=== PATIENT | female | born 1970 | race Caucasian/White ===

== ENCOUNTER 2017-04-05 15:23 | Emergency (ER) | payer MEDICAID ==
[~2017-04-05] VITALS: Ht 162.6 cm; Wt 68.5 kg
[~2017-04-05 15:23] MED LIST: ACYC200C; ALPR2TAB2 PO; ATEN25TA; CYCL10TA9 PO; DIAZ5TAB3 PO; FNT100TD TD; GABA600T2; HYDR-2890 PO; HYDR-707 PO; IBUP-1773 PO; LORA-794; METO50TA7 PO; OMEP20CA12 PO; OXYC-12 PO; SOLI5TAB4 PO; SULF1TAB35; TOLTA4; TRAM50TA2 PO; VENL100T; VENL150C; [UNRECOGNIZED DRUG - OTHER]
[2017-04-05 16:13] LABS: KETONES,URINE 1+ (NEGATIVE); LEUKOCYTE ESTERASE ,URINE 3+ (NEGATIVE); NITRITE,URINE NEGATIVE (NEGATIVE); PH,URINE 5 (5-9); PROTEIN,URINE 2+ (NEGATIVE); UROBILINOGEN,URINE 4 MG/DL (NORMAL)
[2017-04-05 17:02] LABS: BASOPHILS % (AUTO) 0 % (0-10); EOSINOPHILS # (AUTO) 0.1 10^3/uL (0.0-0.3); EOSINOPHILS % (AUTO) 1 % (0-10); LYMPHOCYTES # (AUTO) 3.5 X 10^3 (1.0-4.0); LYMPHOCYTES % (AUTO) 34 % (12-44); MEAN CORPUSCULAR HEMOGLOBIN 33 PG (25-34); MEAN CORPUSCULAR HGB CONC 36 G/DL (32-36); MEAN CORPUSCULAR VOLUME 93 FL (80-99); MEAN PLATELET VOLUME 9.1 FL (7.4-10.4); MONOCYTES # (AUTO) 0.5 X 10^3 (0.0-1.0); MONOCYTES % (AUTO) 5 % (0-12); NEUTROPHILS % (AUTO) 60 % (42-75); PLATELET COUNT 327 10^3/uL (130-400); RED BLOOD COUNT 4.87 10^6/uL (4.35-5.85); RED CELL DISTRIBUTION WIDTH 14.3 % (10.0-14.5); WHITE BLOOD COUNT 10.1 10^3/uL (4.3-11.0)
[2017-04-05 17:21] LABS: ALANINE AMINOTRANSFERASE 16 U/L (0-55); ALCOHOL < 10 MG/DL (<10); ANION GAP 9 MMOL/L (5-14); ASPARTATE AMINO TRANSFERASE 13 U/L (5-34); BILIRUBIN,TOTAL 0.3 MG/DL (0.1-1.0); BLOOD UREA NITROGEN 9 MG/DL (7-18); BUN/CREATININE RATIO 13; CALCIUM 8.8 MG/DL (8.5-10.1); CARBON DIOXIDE 22 MMOL/L (21-32); CHLORIDE 111 MMOL/L (98-107); CREATININE SERUM 0.67 MG/DL (0.60-1.30); GFR ESTIMATED > 60; GLUCOSE 136 MG/DL (70-105); POTASSIUM 3.3 MMOL/L (3.6-5.0); SODIUM 142 MMOL/L (135-145); TOTAL PROTEIN 6.7 GM/DL (6.4-8.2)
[2017-04-05] MEDS ORDERED: TRIM/SULFAMETH 160/800 (SEPTRA DS) TAB PO STA (18:06)
--- NOTE | 2017-04-05 18:09 | ED General ---
General Chief Complaint: Psych/Social Disorder Stated Complaint: MUSCLE PAIN,CONFUSION,FLUSED FACE,DIARRHEA,FEVER Nursing Triage Note: pt sent from [facility] with complaints of muscle pain, confusion, flushed face, and diahrrea. Pt reports confusion has been going on since last week. Nursing Sepsis Screen: Possible Severe Sepsis Risk History of Present Illness Time Seen by Provider: 16:30 Initial Comments Evaluation for multiple complaints. The patient is treated at [facility] psych[facility]. She reports over the last week she is noted more confusion and myalgias. She denies any anxiety or depression at the present time. Timing/Duration: 1 Week Severity: Mild Modifying Factors: improves with Rest Associated Systoms: Loss of Appetite, Malaise, Weakness Allergies and Home Medications Allergies Coded Allergies: Iodinated Contrast Media - IV Dye (Unverified Allergy, Severe, 10/10/13) ibuprofen (Verified Allergy, Mild, 08/15/13) Home Medications Ibuprofen 600 Mg Tablet, 600 MG PO Q8H, (Reported) Metoprolol Succinate 50 Mg Tab, 50 MG PO DAILY, Ref 3 (Reported) Solifenacin Succinate 5 Mg Tablet, 5 MG PO DAILY, (Reported) Sulfamethoxazole/Trimethoprim 1 Each Tablet, 1 EACH PO BID, #14 Ref 0 Prescribed by: REYMUNDO SINGH on 04/05/17 445 Constitutional: see HPI, malaise, weakness EENTM: no symptoms reported, see HPI Respiratory: no symptoms reported, see HPI Cardiovascular: no symptoms reported, see HPI Gastrointestinal: see HPI, diarrhea Genitourinary: no symptoms reported, see HPI Musculoskeletal: see HPI, muscle pain Skin: no symptoms reported, see HPI Psychiatric/Neurological: See HPI, Emotional Problems Hematologic/Lymphatic: No Symptoms Reported, See HPI Immunological/Allergic: no symptoms reported, see HPI All Other Systems Reviewed Negative Unless Noted: Yes Past Hkpieuj-Szzpmf-Zjugoc Hx Patient Social History Alcohol Use: Denies Use Recreational Drug Use: No Smoking Status: Current Everyday Smoker Type Used: Cigars Recent Foreign Travel: No Contact w/Someone Who Travel: No Recent Infectious Disease Expo: No Recent Hopitalizations: Yes Surgeries HX Surgeries: Yes (CLEFT PALATE) Surgeries: Orthopedic Respiratory Hx Respiratory Disorders: No Cardiovascular Hx Cardiac Disorders: Yes Cardiac Disorders: Hypertension Neurological Hx Neurological Disorders: Yes Reproductive System Hx Reproductive Disorders: No Sexually Transmitted Disease: Yes (HERPES) Genitourinary Hx Genitourinary Disorders: No Gastrointestinal Hx Gastrointestinal Disorders: No Musculoskeletal Hx Musculoskeletal Disorders: Yes (LEFT ELBOW) Musculoskeletal Disorders: Fibromyalgia, Chronic Back Pain Endocrine Hx Endocrine Disorders: No HEENT HX ENT Disorders: No Psychosocial Hx Psychiatric Problems: Yes Behavioral Health Disorders: Anxiety, Depression Blood Transfusions Hx Blood Disorders: No Reviewed Nursing Assessment Reviewed/Agree w Nursing PMH: Yes Family Medical History Family Medial History: Chest pain 03 FATHER 03 MOTHER Family history: Diabetes mellitus 03 FATHER 03 MOTHER Heart disease 03 FATHER 03 MOTHER Physical Exam Vital Signs Vital Sign - Last 12Hours 04/05/17 15:54 Temp 98.3 Pulse 110 Resp 18 B/P (MAP) 112/83 Pulse Ox 92 O2 Delivery Room Air Capillary Refill : Less Than 3 Seconds General Appearance: No Apparent Distress Eyes: Bilateral Eye EOMI, Bilateral Eye Normal Inspection, Bilateral Eye PERRL HEENT: PERRL/EOMI, TMs Normal, Normal ENT Inspection, Pharynx Normal Neck: Full Range of Motion, Normal Inspection, Supple Respiratory: Chest Non Tender, Lungs Clear, Normal Breath Sounds Cardiovascular: Regular Rate, Rhythm, No Edema, No Murmur Gastrointestinal: Normal Bowel Sounds, No Organomegaly, No Pulsatile Mass, Non Tender, Soft, No Distended, No Guarding, No Rebound Back: Normal Inspection, No CVA Tenderness, No Vertebral Tenderness Extremity: Normal Capillary Refill, Normal Inspection, No Pedal Edema Neurologic/Psychiatric: Alert, Oriented x3, No Motor/Sensory Deficits, Other ( patient answers all questions appropriately, slightly flat affect.) Skin: Normal Color, Warm/Dry Lymphatic: No Adenopathy Patient Education: Explained Benefits, Explained Risks, Pt. Ack. Understanding Breath Sounds per Auscultation: Clear Heart Sounds per Auscultation: Regular Airway Exam: Mouth opens >2 fingers Sedation Adminstration Time: 2253 Re-examination Time: 2313 Progress/Results/Core Measures Results/Orders Lab Results Laboratory Tests Test 04/05/17 16:06 04/05/17 16:56 Range/Units Urine Color YELLOW Urine Clarity SLIGHTLY CLOUDY Urine pH 5 5-9 Urine Specific [place] 1.025 H 1.016-1.022 Urine Protein 2+ H NEGATIVE Urine Glucose (UA) NEGATIVE NEGATIVE Urine Ketones 1+ H NEGATIVE Urine Nitrite NEGATIVE NEGATIVE Urine Bilirubin 1+ H NEGATIVE Urine Urobilinogen 4 H NORMAL MG/DL Urine Leukocyte Esterase 3+ H NEGATIVE Urine RBC (Auto) NEGATIVE NEGATIVE Urine RBC NONE /HPF Urine WBC 5-10 H /HPF Urine Crystals NONE /LPF Urine Bacteria MODERATE H /HPF Urine Casts NONE /LPF Urine Mucus LARGE H /LPF Urine Culture Indicated YES Urine Opiates Screen NEGATIVE NEGATIVE Urine Oxycodone Screen NEGATIVE NEGATIVE Urine Methadone Screen NEGATIVE NEGATIVE Urine Propoxyphene Screen NEGATIVE NEGATIVE Urine Barbiturates Screen NEGATIVE NEGATIVE Ur Tricyclic Antidepressants Screen NEGATIVE NEGATIVE Urine Phencyclidine Screen NEGATIVE NEGATIVE Urine Amphetamines Screen NEGATIVE NEGATIVE Urine Methamphetamines Screen NEGATIVE NEGATIVE Urine Benzodiazepines Screen NEGATIVE NEGATIVE Urine Cocaine Screen NEGATIVE NEGATIVE Urine Cannabinoids Screen NEGATIVE NEGATIVE White Blood Count 10.1 4.3-11.0 10^3/uL Red Blood Count 4.87 4.35-5.85 10^6/uL Hemoglobin 16.2 H 11.5-16.0 G/DL Hematocrit 45 35-52 % Mean Corpuscular Volume 93 80-99 FL Mean Corpuscular Hemoglobin 33 25-34 PG Mean Corpuscular Hemoglobin Concent 36 32-36 G/DL Red Cell Distribution Width 14.3 10.0-14.5 % Platelet Count 327 130-400 10^3/uL Mean Platelet Volume 9.1 7.4-10.4 FL Neutrophils (%) (Auto) 60 42-75 % Lymphocytes (%) (Auto) 34 12-44 % Monocytes (%) (Auto) 5 0-12 % Eosinophils (%) (Auto) 1 0-10 % Basophils (%) (Auto) 0 0-10 % Neutrophils # (Auto) 6.0 1.8-7.8 X 10^3 Lymphocytes # (Auto) 3.5 1.0-4.0 X 10^3 Monocytes # (Auto) 0.5 0.0-1.0 X 10^3 Eosinophils # (Auto) 0.1 0.0-0.3 10^3/uL Basophils # (Auto) 0.0 0.0-0.1 10^3/uL Sodium Level 142 135-145 MMOL/L Potassium Level 3.3 L 3.6-5.0 MMOL/L Chloride Level 111 H 98-107 MMOL/L Carbon Dioxide Level 22 21-32 MMOL/L Anion Gap 9 5-14 MMOL/L Blood Urea Nitrogen 9 7-18 MG/DL Creatinine 0.67 0.60-1.30 MG/DL Estimat Glomerular Filtration Rate > 60 BUN/Creatinine Ratio 13 Glucose Level 136 H 70-105 MG/DL Calcium Level 8.8 8.5-10.1 MG/DL Total Bilirubin 0.3 0.1-1.0 MG/DL Aspartate Amino Transf (AST/SGOT) 13 5-34 U/L Alanine Aminotransferase (ALT/SGPT) 16 0-55 U/L Alkaline Phosphatase 123 40-136 U/L Total Protein 6.7 6.4-8.2 GM/DL Albumin 4.0 3.2-4.5 GM/DL Serum Alcohol < 10 <10 MG/DL My Orders Orders - REYMUNDO SINGH Sulfamethoxazole/Trimet Ds Tab (Bactrim (04/05/17 18:06) Vital Signs/I&O Vital Sign - Last 12Hours 04/05/17 04/05/17 15:54 18:38 Temp 98.3 97.6 Pulse 110 98 Resp 18 18 B/P (MAP) 112/83 Pulse Ox 92 90 O2 Delivery Room Air Blood Pressure Mean: 93 Progress Note : Time: 16:30 Progress Note Initial evaluation completed. Will obtain labs and reevaluate. 1710 CBC and CMP essentially normal with WBC 10.1. Urine positive for urinary tract infection. Discussed results of these with patient and her partner. She will be seeing him formerly [facility] [place], to discuss possible changes to her psychiatric medications. Departure Impression Impression: Primary Impression: Urinary tract infection Qualified Codes: N30.00 - Acute cystitis without hematuria Disposition: 01 HOME, SELF-CARE Condition: Stable Departure-Patient Inst. Decision time for Depature: 18:00 Referrals: LAWRENCE SANCHEZ MD (PCP/Family) Primary Care Physician Patient Instructions: Urinary Tract Infection, Adult (DC) Add. Discharge Instructions: Increase water intake, 2 L per day. Empty bladder frequently Follow-up with Dr. Sanchez if no improvement in symptoms. Return to emergency department for fevers, shortness of breath, chest pain or new problems. All discharge instructions reviewed with patient and/or family. Voiced understanding. Scripts Sulfamethoxazole/Trimethoprim (Bactrim Ds Tablet) 1 Each Tablet 1 EACH PO BID, #14 TAB 0 Refills Prov: REYMUNDO SINGH 04/05/17 Copy Copies To 1: LAWRENCE SANCHEZ MD, AMY ARNP Apr 05, 2017 18:09
[2017-04-05] MEDS ORDERED: SULF1TAB35 PO (18:27)
[2017-04-05 18:38] VITALS: BP 119/79
--- OUTSIDE RECORDS SUMMARY | 2017-04-05 18:42 | XMS REPORT | Continuity of Care Document ---
Author Author [facility] Organization [facility] Address Unknown Phone Unavailable Care Team Providers Care Pipe Organ Technician Name Role Phone Cristino Goodman PCP [phone] Source Comments Some departments are not documenting in the electronic medical record. If you do not see the information that you expected, contact Release of Information in the Health Information Management department at [phone] for further assistance in locating additional records.[facility] Active Allergies and Adverse Reactions Allergen Noted Date Severity Reactions Comments Iodine 03/31/2009 Pt states Tylenol-Codeine 03/29/2009 NAUSEA ONLY Current Medications Prescription Sig. Disp. Refills Start End Date Status Date atenolol (TENORMIN) 25 mg Take 25 mg by mouth Active tablet Daily. venlafaxine XR (EFFEXOR Take 1 Cap by mouth Daily 30 0 04/08/20 Active XR) 150 mg capsule With Breakfast. 09 risperidone (RISPERDAL) 2 Take 1 Tab by mouth At 30 1 04/20/20 Active mg tablet Bedtime Daily. 09 lidocaine (LIDODERM) 5 % Apply 1-3 patches to 30 1 04/20/20 Active topical patch affected area, may cut to 09 fit affected areas. OXYCODONE HCL (OXYCODONE Take 5 mg by mouth. Active PO) OXYBUTYNIN CHLORIDE Take 10 mg by mouth. Active (DITROPAN PO) LORazepam (ATIVAN) 1 mg Take 1 mg by mouth. Active PO tablet fentaNYL (DURAGESIC) 100 Apply 1 Patch to top of Active mcg/hr TD patch skin as directed every 72 hours. CLONAZEPAM (KLONOPIN PO) Take 0.5 mg by mouth at Active bedtime daily. IBUPROFEN PO Take by mouth. Active BLACK COHOSH PO Take by mouth. 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 Acetaminophen overdose 03/29/2009 Suicide attempt (HCC) 03/29/2009 Social History Tobacco Use Types Packs/Day Years Used Date Current Every Day Smoker Cigarettes 2 28 Alcohol Use Drinks/Week oz/Week Comments Yes 3-4 Standard 1.5 - 2.0 drinks or equivalent Last Filed Vital Signs Vital Sign Reading Time Taken Blood Pressure 112/72 04/20/2009 8:00 AM CDT Pulse 61 04/20/2009 8:00 AM CDT Temperature 36.4 C (97.5 F) 04/20/2009 8:00 AM CDT Respiratory Rate - - Height 1.615 m (5' 3.6") 04/09/2009 2:00 PM CDT Weight 79.2 kg (174 lb 9.7 oz) 04/09/2009 2:00 PM CDT Body Mass Index 30.37 04/09/2009 2:00 PM CDT Oxygen Saturation 96% 04/09/2009 11:00 AM CDT Plan of Care Health Maintenance Due Date Last Done Comments Physical (Comprehensive) 1976 Exam Pertussis Vaccine 1980 Tetanus Vaccine 1986 Cervical Cancer Screening 1990 Breast Cancer Screening 2009 Influenza Vaccine 06/02/2017 Results from Last 3 Months Not on file
--- OUTSIDE RECORDS SUMMARY | 2017-04-05 18:42 | XMS REPORT | Continuity of Care Document ---
Author Author [facility] Address Unknown Phone Unavailable Allergies Active Description Code Type Severity Reaction Onset Reported/Identified Relationship to Patient Clinical Status Yes ibuprofen [id number] Drug Allergy Mild N/A 08/15/2013 Yes Iodinated Contrast Media - IV Dye [id number] Drug Allergy Severe N/A 10/10/2013 Yes iodine Drug Allergy N/A N/A 04/15/2014 Medications Problems Date Dx Coded Attending Type Code Diagnosis Diagnosed By 11/08/2012 Ot 789.06 08/17/2013 JENN GAMEZ DO Ot 276.8 08/17/2013 JENN GAMEZ DO Ot 300.00 08/17/2013 JENN GAMEZ DO Ot 305.1 08/17/2013 JENN GAMEZ DO Ot 311 08/17/2013 JENN GAMEZ DO Ot 338.4 08/17/2013 JENN GAMEZ DO Ot 355.9 08/17/2013 JENN GAMEZ DO Ot 530.81 08/17/2013 JENN GAMEZ DO Ot 721.90 08/17/2013 JENN GAMEZ DO Ot 729.1 08/17/2013 JENN GAMEZ DO Ot 786.50 08/17/2013 JENN GAMEZ DO Ot 813.01 08/17/2013 JENN GAMEZ DO Ot 824.8 08/17/2013 JENN GAMEZ DO Ot 832.01 08/17/2013 JENN GAMEZ DO Ot 873.42 08/17/2013 JENN GAMEZ DO Ot E000.8 08/17/2013 JENN GAMEZ DO Ot E849.0 08/17/2013 JENN GAMEZ DO Ot E880.9 10/11/2013 JENN GAMEZ DO Ot 733.82 10/11/2013 JENN GAMEZ DO Ot 905.2 10/11/2013 JENN GAMEZ DO Ot E929.9 10/19/2013 BOB LOVETT, NOAH Calles Ot 054.9 10/19/2013 BOB LOVETT, NOAH Calles Ot 276.8 10/19/2013 BOB LOVETT, NOAH Calles Ot 300.4 10/19/2013 BOB LOVETT, NOAH Calles Ot 355.9 10/19/2013 BOB LOVETT, NOAH Calles Ot 401.9 10/19/2013 BOB LOVETT, NOAH Calles Ot 596.51 10/19/2013 BOB LOVETT, NOAH Calles Ot 715.90 10/19/2013 BOB LOVETT, NOAH Calles Ot 724.2 10/19/2013 BOB LOVETT, NOAH Calles Ot 729.1 10/19/2013 BOB LOVETT, NAOH Calles Ot 969.4 10/19/2013 BOB LOVETT, NOAH Calles Ot E950.3 10/19/2013 BOB LOVETT, NOAH Calles Ot V04.81 10/19/2013 BOB LOVETT, NOAH Calles Ot V15.41 10/19/2013 BOB LOVETT, NOAH Calles Ot V62.84 12/24/2013 FRANCO LEMON JENN Calles Ot 719.42 12/24/2013 FRANCO LEMON JENN Calles Ot V45.89 12/24/2013 FRANCO LMEON JENN Calles Ot V57.1 04/15/2014 COOKIE CASTILLO APRN A 625.8 OTHER SPECIFIED SYMPTOMS ASSOCIATED WITH FEMALE GENITAL ORGANS 04/15/2014 MADL PATIENT SCHEDULER, AN L 625.8 OTHER SPECIFIED SYMPTOMS ASSOCIATED WITH FEMALE GENITAL ORGANS 04/15/2014 ANGELICA SR DO 625.8 OTHER SPECIFIED SYMPTOMS ASSOCIATED WITH FEMALE GENITAL ORGANS 04/15/2014 RUTH JIMENEZ APRNINA R 625.8 OTHER SPECIFIED SYMPTOMS ASSOCIATED WITH FEMALE GENITAL ORGANS 04/15/2014 MADL PATIENT SCHEDULER, AN L 625.8 OTHER SPECIFIED SYMPTOMS ASSOCIATED WITH FEMALE GENITAL ORGANS 04/15/2014 MADL PATIENT SCHEDULER, AN L 625.8 OTHER SPECIFIED SYMPTOMS ASSOCIATED WITH FEMALE GENITAL ORGANS 04/15/2014 MADL PATIENT SCHEDULER, AN L 625.8 OTHER SPECIFIED SYMPTOMS ASSOCIATED WITH FEMALE GENITAL ORGANS 04/15/2014 COOKIE CASTILLO APRN A 625.8 OTHER SPECIFIED SYMPTOMS ASSOCIATED WITH FEMALE GENITAL ORGANS 04/15/2014 LEXUS PETERS DDS 625.8 OTHER SPECIFIED SYMPTOMS ASSOCIATED WITH FEMALE GENITAL ORGANS 05/01/2014 MADL PATIENT SCHEDULER, AN L 623.5 LEUKORRHEA NOT SPECIFIED INFECTIVE 05/01/2014 MADL PATIENT SCHEDULER, AN L 625.9 UNSPECIFIED SYMPTOM ASSOCIATED WITH FEMALE GENITAL ORGANS 05/01/2014 MADL PATIENT SCHEDULER, AN L V74.5 STD SCREEN 05/01/2014 SR DO, ANGELICA K 623.5 LEUKORRHEA NOT SPECIFIED INFECTIVE 05/01/2014 SR DO, ANGELICA K 625.9 UNSPECIFIED SYMPTOM ASSOCIATED WITH FEMALE GENITAL ORGANS 05/01/2014 SR DO, ANGELICA K V74.5 STD SCREEN 05/01/2014 BARBARA PATIENT SCHEDULER, DEONTE R 623.5 LEUKORRHEA NOT SPECIFIED INFECTIVE 05/01/2014 BARBARA PATIENT SCHEDULER DEONTE R 625.9 UNSPECIFIED SYMPTOM ASSOCIATED WITH FEMALE GENITAL ORGANS 05/01/2014 BARBARA PATIENT SCHEDULER DEONTE R V74.5 STD SCREEN 05/01/2014 MADL PATIENT SCHEDULER, AN L 623.5 LEUKORRHEA NOT SPECIFIED INFECTIVE 05/01/2014 MADL PATIENT SCHEDULER, AN L 625.9 UNSPECIFIED SYMPTOM ASSOCIATED WITH FEMALE GENITAL ORGANS 05/01/2014 MADL PATIENT SCHEDULER, AN L V74.5 STD SCREEN 05/01/2014 MADL PATIENT SCHEDULER, AN L 623.5 LEUKORRHEA NOT SPECIFIED INFECTIVE 05/01/2014 MADL PATIENT SCHEDULER, AN L 625.9 UNSPECIFIED SYMPTOM ASSOCIATED WITH FEMALE GENITAL ORGANS 05/01/2014 MADL PATIENT SCHEDULER, AN L V74.5 STD SCREEN 05/01/2014 MADL PATIENT SCHEDULER, AN L 623.5 LEUKORRHEA NOT SPECIFIED INFECTIVE 05/01/2014 MADL PATIENT SCHEDULER, AN L 625.9 UNSPECIFIED SYMPTOM ASSOCIATED WITH FEMALE GENITAL ORGANS 05/01/2014 MADL PATIENT SCHEDULER, AN L V74.5 STD SCREEN 05/01/2014 ANNA PATIENT SCHEDULER, COOKIE A 623.5 LEUKORRHEA NOT SPECIFIED INFECTIVE 05/01/2014 ANNA PATIENT SCHEDULER, COOKIE A 625.9 UNSPECIFIED SYMPTOM ASSOCIATED WITH FEMALE GENITAL ORGANS 05/01/2014 ANNA PATIENT SCHEDULER, COOKIE A V74.5 STD SCREEN 05/01/2014 FRAN WYATTS, LEXUS 623.5 LEUKORRHEA NOT SPECIFIED INFECTIVE 05/01/2014 FRAN WYATTS, LEXUS 625.9 UNSPECIFIED SYMPTOM ASSOCIATED WITH FEMALE GENITAL ORGANS 05/01/2014 FRAN WYATTS, LEXUS V74.5 STD SCREEN 07/10/2014 MADL PATIENT SCHEDULER, AN L 296.20 MAJOR DEPRESSIVE AFFECTIVE DISORDER SINGLE EPISODE UNSPECIFIED DEGREE 07/10/2014 MADL PATIENT SCHEDULER, AN L 297.8 OTHER SPECIFIED PARANOID STATES 07/10/2014 MADL PATIENT SCHEDULER, AN L 300.00 ANXIETY UNSPEC 07/10/2014 MADL PATIENT SCHEDULER, AN L 401.1 HYPERTENSION, BENIGN ESSENTIAL 07/10/2014 MADL PATIENT SCHEDULER, AN L 719.42 PAIN IN JOINT INVOLVING UPPER ARM 07/10/2014 MADL PATIENT SCHEDULER, AN L V72.83 OTHER SPECIFIED PRE-OPERATIVE EXAMINATION 07/10/2014 MADL PATIENT SCHEDULER, AN L 296.20 MAJOR DEPRESSIVE AFFECTIVE DISORDER SINGLE EPISODE UNSPECIFIED DEGREE 07/10/2014 MADL PATIENT SCHEDULER, AN L 297.8 OTHER SPECIFIED PARANOID STATES 07/10/2014 MADL PATIENT SCHEDULER, AN L 300.00 ANXIETY UNSPEC 07/10/2014 MADL PATIENT SCHEDULER, AN L 401.1 HYPERTENSION, BENIGN ESSENTIAL 07/10/2014 MADL PATIENT SCHEDULER, AN L 719.42 PAIN IN JOINT INVOLVING UPPER ARM 07/10/2014 MADL PATIENT SCHEDULER, AN L V72.83 OTHER SPECIFIED PRE-OPERATIVE EXAMINATION 07/10/2014 MADL PATIENT SCHEDULER, AN L 296.20 MAJOR DEPRESSIVE AFFECTIVE DISORDER SINGLE EPISODE UNSPECIFIED DEGREE 07/10/2014 MADL PATIENT SCHEDULER, AN L 297.8 OTHER SPECIFIED PARANOID STATES 07/10/2014 MADL PATIENT SCHEDULER, AN L 300.00 ANXIETY UNSPEC 07/10/2014 MADL PATIENT SCHEDULER, AN L 401.1 HYPERTENSION, BENIGN ESSENTIAL 07/10/2014 MADL PATIENT SCHEDULER, AN L 719.42 PAIN IN JOINT INVOLVING UPPER ARM 07/10/2014 MADL PATIENT SCHEDULER, AN L V72.83 OTHER SPECIFIED PRE-OPERATIVE EXAMINATION 07/10/2014 ANNA PATIENT SCHEDULER, COOKIE A 296.20 MAJOR DEPRESSIVE AFFECTIVE DISORDER SINGLE EPISODE UNSPECIFIED DEGREE 07/10/2014 ANNA COEN, COOKIE A 297.8 OTHER SPECIFIED PARANOID STATES 07/10/2014 ANNA COEN, COOKIE A 300.00 ANXIETY UNSPEC 07/10/2014 ANNA JONES, COOKIE A 401.1 HYPERTENSION, BENIGN ESSENTIAL 07/10/2014 ANNA COEN, COOKIE A 719.42 PAIN IN JOINT INVOLVING UPPER ARM 07/10/2014 ANNA JONES, COOKIE A V72.83 OTHER SPECIFIED PRE-OPERATIVE EXAMINATION 07/10/2014 PETERS LEXUS HUERTA 296.20 MAJOR DEPRESSIVE AFFECTIVE DISORDER SINGLE EPISODE UNSPECIFIED DEGREE 07/10/2014 LEXUS PETERS DDS 297.8 OTHER SPECIFIED PARANOID STATES 07/10/2014 PETERS LEXUS HUERTA 300.00 ANXIETY UNSPEC 07/10/2014 PETERS LEXUS HUERTA 401.1 HYPERTENSION, BENIGN ESSENTIAL 07/10/2014 PETERS LEXUS HUERTA 719.42 PAIN IN JOINT INVOLVING UPPER ARM 07/10/2014 PETERS EDMUNDOSLEXUS V72.83 OTHER SPECIFIED PRE-OPERATIVE EXAMINATION 07/15/2014 MADL PATIENT SCHEDULER, AN L 790.29 ABNORMAL GLUCOSE 07/15/2014 MADL PATIENT SCHEDULER, AN L V77.0 THYROID DISORDER SCREENING 07/15/2014 MADL PATIENT SCHEDULER, AN L 790.29 ABNORMAL GLUCOSE 07/15/2014 MADL PATIENT SCHEDULER, AN L V77.0 THYROID DISORDER SCREENING 07/15/2014 MADL PATIENT SCHEDULER, AN L 790.29 ABNORMAL GLUCOSE 07/15/2014 MADL PATIENT SCHEDULER, AN L V77.0 THYROID DISORDER SCREENING 07/15/2014 ANNA PATIENT SCHEDULER, COOKIE A 790.29 ABNORMAL GLUCOSE 07/15/2014 ANNA COEN, COOKIE A V77.0 THYROID DISORDER SCREENING 07/15/2014 PETERS EDMUNDOSLEXUS 790.29 ABNORMAL GLUCOSE 07/15/2014 PETERS EDMUNDOSLEXUS V77.0 THYROID DISORDER SCREENING 07/24/2014 MADL PATIENT SCHEDULER, AN L 461.9 SINUSITIS ACUTE 07/24/2014 ZAC JONES, AN L 724.2 BACK PAIN, LOWER 07/24/2014 MADL PATIENT SCHEDULER, AN L 790.21 IMPAIRED FASTING GLUCOSE 07/24/2014 MADL PATIENT SCHEDULER, AN L 794.5 NONSPECIFIC ABNORMAL RESULTS OF FUNCTION STUDY OF THYROID 07/24/2014 MADKari JONES, AN L 461.9 SINUSITIS ACUTE 07/24/2014 MADL PATIENT SCHEDULER, AN L 724.2 BACK PAIN, LOWER 07/24/2014 MADL PATIENT SCHEDULER, AN L 790.21 IMPAIRED FASTING GLUCOSE 07/24/2014 MADL PATIENT SCHEDULER, AN L 794.5 NONSPECIFIC ABNORMAL RESULTS OF FUNCTION STUDY OF THYROID 07/24/2014 ANNA JONES, COOKIE A 461.9 SINUSITIS ACUTE 07/24/2014 ANNA JONES, COOKIE A 724.2 BACK PAIN, LOWER 07/24/2014 ANNA JONES, COOKIE A 790.21 IMPAIRED FASTING GLUCOSE 07/24/2014 ANNA PATIENT SCHEDULER, COOKIE A 794.5 NONSPECIFIC ABNORMAL RESULTS OF FUNCTION STUDY OF THYROID 07/24/2014 PETERS DDS, LEXUS 461.9 SINUSITIS ACUTE 07/24/2014 PETERS DDS, LEXUS 724.2 BACK PAIN, LOWER 07/24/2014 PETERS DDS, LEXUS 790.21 IMPAIRED FASTING GLUCOSE 07/24/2014 PETERS DDS, LEXUS 794.5 NONSPECIFIC ABNORMAL RESULTS OF FUNCTION STUDY OF THYROID 07/31/2014 ZAC JONES, AN L 112.1 CANDIDIASIS OF VULVA AND VAGINA 07/31/2014 ANNA JONES, COOKIE A 112.1 CANDIDIASIS OF VULVA AND VAGINA 07/31/2014 PETERS DDS, LEXUS 112.1 CANDIDIASIS OF VULVA AND VAGINA 07/23/2015 Ot 625.9 07/23/2015 Ot 789.30 07/23/2015 Ot 719.46 07/23/2015 Ot V76.12 07/23/2015 ERIC SANTORO MD Ot 592.0 07/23/2015 JENN GAMEZ DO Ot 719.42 07/23/2015 JENN GAMEZ DO Ot V54.11 07/23/2015 [facility] Ot 996.78 07/23/2015 JENN GAMEZ DO Ot V72.63 07/23/2015 JENN GAMEZ DO Ot V74.8 07/23/2015 NA FRANK APPRENTICE COOK Ot 623.5 07/23/2015 AN FRANK APPRENTICE COOK Ot 625.0 07/23/2015 AN FRANK APPRENTICE COOK Ot V74.5 Procedures Code [place] [address] UA LONG DIP 04/15 73959 TRICHOMONAS (IN-HOUSE) 05/01/2014 77953 GC/CHLAM PROBE (STATE) 05/01/2014 56750 US PELVIC COMPL (REFLEX CPT- 06305) 05/02/2014 11639 CULTURE UROGENITAL 05/05/2014 86607 UA LONG DIP 05/09 98523 CULTURE URINE 09/2014 70175 ROUTINE VENIPUNCTURE 07/10/2014 48113 XRAY ELBOW L COMP MIN 3 VIEWS 07/10/2014 75572 CMP 07/10/2014 32162 TSH 07/10/2014 55442 CBC 07/10/2014 71715 EKG, TRACING 06/2014 47381 XRAY LUMBAR SPINE 2 OR 3 VIEWS 07/31/2014 Results Encounters ACCT No. Visit Date/Time Discharge Status Pt. Type Provider Facility Loc./Unit Complaint [id number] 08/06/2014 15:50:00 08/06/2014 23: 59:59 CLS Outpatient COOKIE CASTILLO APRN [id number] 07/31/2014 08:46:00 07/31/2014 23: 59:59 CLS Outpatient AN FRANK APRN [id number] 07/24/2014 11:34:00 07/24/2014 23: 59:59 CLS Outpatient AN FRANK APRN [id number] 07/10/2014 09:49:00 07/10/2014 23: 59:59 CLS Outpatient AN FRANK APRN [id number] 2014 15:28:00 2014 23: 59:59 CLS Outpatient DEONTE JIMENEZ APRN [id number] 2014 15:28:00 2014 23: 59:59 CLS Outpatient REMBERTO ANGELICA LEMON Livia [id number] 05/01/2014 13:57:00 05/01/2014 23: 59:59 CLS Outpatient AN FRANK APRN [id number] 04/15/2014 13:19:00 04/15/2014 23: 59:59 CLS Outpatient COOKIE CASTILLO APRN [id number] 04/10/2014 08:41:00 04/10/2014 23: 59:59 CLS Outpatient LEXUS PETERS DDS
[2017-04-06 07:47] LABS: BILIRUBIN,URINE 1+ (NEGATIVE)
== END 2017-04-05 18:38 | disposition home or self-care (01) ==
LOC: EDUNIT# 15:23 → ER 15:26
DX: N39.0 Urinary tract infection, site not specified (principal); M79.1 Myalgia; G89.29 Other chronic pain; M54.9 Dorsalgia, unspecified; F41.9 Anxiety disorder, unspecified; F32.9 Major depressive disorder, single episode, unspecified; I10 Essential (primary) hypertension; F17.290 Nicotine dependence, other tobacco product, uncomplicated
CPT/HCPCS: 36415; 80053; 80306; 80320; 81000; 85025; 87088; 87186; 99283